=== PATIENT | female | born 1965 | race Caucasian/White ===

== ENCOUNTER 2019-10-21 17:03 | Outpatient (REF) | payer BC, SELFPAY ==
[2019-10-21 19:31] LABS: TSH (W/Ref FT4) 4.23 uIU/mL (0.36-3.74)
[2019-10-21 19:50] LABS: FREE T4 1.07 ng/dL (0.76-1.46)
== END 2019-10-21 17:23 ==
LOC: NCHCN 17:03
PROVIDERS: PCP Physician Assistant Medical; Visit Provider Physician Assistant
DX: E03.9 Hypothyroidism, unspecified (principal); Z00.00 Encounter for general adult medical examination without abnormal findings
CPT/HCPCS: 84439; 84443

== ENCOUNTER 2020-01-21 22:49 | Outpatient (REF) | payer BC, SELFPAY ==
[2020-01-21 19:15] LABS: TSH (W/Ref FT4) 3.32 uIU/mL (0.36-3.74)
== END 2020-01-21 23:09 ==
LOC: NCHCN 22:49
PROVIDERS: PCP Physician Assistant Medical; Visit Provider Physician Assistant
DX: E03.9 Hypothyroidism, unspecified (principal)
CPT/HCPCS: 84443

== ENCOUNTER 2020-03-20 14:35 | Outpatient (REF) | payer BC, SELFPAY ==
[2020-03-20 21:25] LABS: TSH 1.27 uIU/mL (0.36-3.74)
== END 2020-03-20 14:55 ==
LOC: NCHCN 14:35
PROVIDERS: PCP Physician Assistant Medical; Visit Provider Physician Assistant
DX: E03.9 Hypothyroidism, unspecified (principal)
CPT/HCPCS: 84443

== ENCOUNTER 2020-12-08 15:14 | Outpatient (REF) | payer BC, SELFPAY ==
[2020-12-08 19:34] LABS: Anion Gap 6.5 mmol/L (3-11); BUN 17 mg/dL (7-18); C-Reactive Protein 0.12 mg/dL (0.0-0.3); CO2 26.5 mmol/L (21.0-32.0); CREATININE 0.9 mg/dL (0.55-1.02); Calcium 8.8 mg/dL (8.5-10.1); Chloride 102 mmol/L (98-107); Glucose 117 mg/dL (74-106); Sodium 135 mmol/L (136-145); TSH (W/Ref FT4) 2.68 uIU/mL (0.36-3.74)
[2020-12-10 17:03] LABS: Rheumatoid Factor <8.6 IU/mL (<12.0)
[2020-12-11 10:53] LABS: Lyme Ab w Rflx to Lyme Confirm Negative (Negative)
[2020-12-14 00:51] LABS: Anaplasma phagocytophilum Negative (Negative); B. miyamotoi PCR Negative (Negative); Babesia divergens/MO-1 Negative (Negative); Babesia duncani Negative (Negative); Babesia microti Negative (Negative); Ehrlichia chaffeensis Negative (Negative); Ehrlichia ewingii/canis Negative (Negative); Ehrlichia muris eauclairensis Negative (Negative)
== END 2020-12-08 15:34 ==
LOC: NCHCN 15:14
PROVIDERS: PCP Physician Assistant Medical; Visit Provider Physician Assistant
DX: E03.9 Hypothyroidism, unspecified (principal); M25.59 Pain in other specified joint
CPT/HCPCS: 80048; 87798; 84443; 86140; 86431; 86618

== ENCOUNTER 2021-01-08 16:02 | Outpatient (REF) | payer BC, SELFPAY ==
[2021-01-08 16:03] LABS: ALT 23 U/L (14-59); AST 18 U/L (15-37); Albumin 4.1 g/dL (3.4-5.0); Alkaline Phosphatase 66 U/L (46-116); BUN 9 mg/dL (7-18); Bilirubin, Total 0.6 mg/dL (0.2-1.0); CREATININE 0.7 mg/dL (0.55-1.02); Calcium 8.9 mg/dL (8.5-10.1); Calculated LDL 132 mg/dL (<100); Chloride 104 mmol/L (98-107); Cholesterol 209 mg/dL (<200); Glucose 94 mg/dL (74-106); HDL Cholesterol 59 mg/dL (40-60); Potassium 3.8 mmol/L (3.5-5.1); Sodium 139 mmol/L (136-145); TSH (W/Ref FT4) 0.77 uIU/mL (0.36-3.74); Total Protein 7.1 g/dL (6.4-8.2); Triglyceride 91 mg/dL (<150)
== END 2021-01-08 16:03 | disposition home or self-care (01) ==
LOC: LBN 16:02
PROVIDERS: PCP Physician Assistant Medical; Visit Provider Obstetrics & Gynecology
DX: E03.9 Hypothyroidism, unspecified (principal); Z00.00 Encounter for general adult medical examination without abnormal findings
CPT/HCPCS: 80053; 80061; 84443

== ENCOUNTER 2022-03-22 17:52 | Outpatient (REF) | payer BC, SELFPAY ==
[2022-03-22 19:26] LABS: Anion Gap 7.6 mmol/L (3-11); BUN 16 mg/dL (7-18); CO2 27.4 mmol/L (21.0-32.0); CREATININE 1.1 mg/dL (0.55-1.02); Calcium 8.7 mg/dL (8.5-10.1); Chloride 105 mmol/L (98-107); Estimated GFR 51.76 (mL/min/1.73m2); Glucose 96 mg/dL (74-106); Sodium 140 mmol/L (136-145)
== END 2022-03-22 17:53 | disposition home or self-care (01) ==
LOC: NCHCN 17:52
PROVIDERS: PCP Physician Assistant Medical; Visit Provider Physician Assistant
DX: E03.9 Hypothyroidism, unspecified (principal)
CPT/HCPCS: 80048; 84443

== ENCOUNTER 2023-03-25 17:53 | Outpatient (REF) | payer BC, SELFPAY ==
[2023-03-25 19:21] LABS: ALT 28 U/L (14-59); AST 20 U/L (15-37); Albumin 4.1 g/dL (3.4-5.0); Alkaline Phosphatase 76 U/L (46-116); Anion Gap 8.3 mmol/L (3-11); BUN 12 mg/dL (7-18); Bilirubin, Total 0.5 mg/dL (0.2-1.0); CO2 29.7 mmol/L (21.0-32.0); CREATININE 0.8 mg/dL (0.55-1.02); Calcium 9.3 mg/dL (8.5-10.1); Chloride 104 mmol/L (98-107); Estimated GFR 86.96 (mL/min/1.73m2); Glucose 93 mg/dL (74-106); Sodium 142 mmol/L (136-145); TSH 0.39 uIU/mL (0.36-3.74); Total Protein 7.5 g/dL (6.4-8.2)
== END 2023-03-25 17:54 | disposition home or self-care (01) ==
LOC: NCHCN 17:53
PROVIDERS: PCP Physician Assistant Medical; Visit Provider Physician Assistant
DX: Z00.00 Encounter for general adult medical examination without abnormal findings (principal); E03.9 Hypothyroidism, unspecified
CPT/HCPCS: 80053; 84443

== ENCOUNTER 2024-04-06 09:47 | Outpatient (REF) | payer BC, SELFPAY ==
[2024-04-06 18:47] LABS: Abs Immature Grans 0.01 10^3/uL (0.0-0.06); Absolute Eosinophil Count 0.39 10^3/uL (0.0-0.7); Absolute Lymphocyte Count 2.43 10^3/uL (1.2-3.4); Absolute Monocyte Count 0.42 10^3/uL (0.1-0.8); Absolute Neutrophil Count 2.26 10^3/uL (1.2-6.7); Basophils % 1.8 %; HCT 36.9 % (36.0-46.0); HGB 11.4 g/dL (11.2-15.7); Immature Grans % 0.2 %; Lymphocytes % 43.3 %; MCH 18.1 pg (27.0-33.0); MCHC 30.9 % (32.0-36.0); MCV 59 fL (80-95); Monocytes % 7.5 %; Neutrophils % 40.2 %; RBC 6.29 10^6/uL (3.93-5.22); RDW 18.2 % (11.7-14.6); WBC 5.61 10^3/uL (4.4-10.8)
[2024-04-06 19:33] LABS: Iron 103 ug/dL (50-170); Total Iron Binding Capacity 291 ug/dL (250-450); Transferrin Sat 35 % (15-50)
[2024-04-06 19:50] LABS: Hemoglobin A1C 5.6 % (<5.7)
[2024-04-06 19:58] LABS: Calculated LDL 123 mg/dL (<100); Cholesterol 210 mg/dL (<200); Ferritin 180 ng/mL (8-252); Folate 11.6 ng/mL (8.6-20.0); HDL Cholesterol 74 mg/dL (40-60); TSH (W/Ref FT4) 0.16 uIU/mL (0.36-3.74); Triglyceride 66 mg/dL (<150); Vitamin B12 488 pg/mL (193-986)
[2024-04-06 20:01] LABS: Vitamin D 25 Total 19.5 ng/mL (30-100)
[2024-04-06 20:18] LABS: FREE T4 1.38 ng/dL (0.76-1.46)
[2024-04-06 20:59] LABS: Platelet Count 289 10^3/uL (130-400)
[2024-04-06 21:00] LABS: Anisocytosis 1+; Diff Comment RBC Morph Reviewed; Hypochromasia 2+; Microcytosis 3+
[2024-04-06 21:01] LABS: Poikilocytes 2+
[2024-04-07 18:45] LABS: HIV-1/2 Ag & Ab Screen Negative (Negative)
[2024-04-07 22:27] LABS: Hepatitis C Ab w Rflx HCV PCR Negative (Negative)
== END 2024-04-06 09:48 | disposition home or self-care (01) ==
LOC: NCHCN 09:47
PROVIDERS: PCP Physician Assistant Medical; Visit Provider Physician Assistant
DX: Z13.1 Encounter for screening for diabetes mellitus (principal); Z00.00 Encounter for general adult medical examination without abnormal findings; Z13.6 Encounter for screening for cardiovascular disorders; E03.9 Hypothyroidism, unspecified; D56.3 Thalassemia minor
CPT/HCPCS: 80061; 82306; 86803; 87389; 82607; 82728; 82746; 83036; 83540; 83550; 84439; 84443; 85025

== ENCOUNTER 2025-04-06 12:53 | Outpatient (REF) | payer BC, SELFPAY ==
[2025-04-06 21:43] LABS: ALT 25 U/L (14-59); AST 24 U/L (15-37); Albumin 4.4 g/dL (3.4-5.0); Alkaline Phosphatase 87 U/L (46-116); Anion Gap 7.8 mmol/L (3-11); BUN 12 mg/dL (7-18); Bilirubin, Total 0.8 mg/dL (0.2-1.0); CO2 30.2 mmol/L (21.0-32.0); CREATININE 0.9 mg/dL (0.55-1.02); Calcium 9.8 mg/dL (8.5-10.1); Chloride 104 mmol/L (98-107); Estimated GFR 74.57 (mL/min/1.73m2); Glucose 93 mg/dL (74-106); Potassium 4.8 mmol/L (3.5-5.1); Sodium 142 mmol/L (136-145); TSH (W/Ref FT4) 1.26 uIU/mL (0.36-3.74); Total Protein 7.8 g/dL (6.4-8.2)
== END 2025-04-06 12:54 | disposition home or self-care (01) ==
LOC: NCHCN 12:53
PROVIDERS: PCP Physician Assistant Medical; Visit Provider Physician Assistant
DX: E03.9 Hypothyroidism, unspecified (principal)
CPT/HCPCS: 80053; 84443